=== PATIENT | female | born 1970 | race Caucasian/White ===

== ENCOUNTER 2024-08-31 06:03 | Emergency (ER) | payer OTHER, SELFPAY ==
[2024-08-31 06:18] VITALS: BP 145/5
--- NOTE | 2024-08-31 07:15 | ED.GENMED ---
History of Present Illness
General
Chief Complaint: Skin Surface Trauma
Source: patient
Exam Limitations: none
Time Seen by Provider: 08/31/24 07:06
History of Present Illness
History of Present Illness:
54yoF presenting for evaluation after a fall around 1am. Patient has a tendency to trip due to have abnormal foot anatomy. She woke up in the middle of the night and was walking in the dark when she tripped and fell forward. She struck the left side
of her lip causing a laceration. She denies any loss of consciousness. She denies any dental trauma. Tdap is reportedly up to date.
Past History
Past History
ED Past Medical History: Other (Rheumatoid arthritis, maintained on Enbrel injections, Plaquinil, Sjogren syndrome)
ED Past Surgical History: None
Social History
Tobacco: Non-smoker
Alcohol: Occasional
Personal:
Living: with family
Employment: Employed
Family History
Family History: Other
Phy Exam
General Physical Exam
General Presentation: well appearing and no apparent distress
General age: appears stated age
General Skin: warm and dry
General Habitus: normal
General Mental: alert
ENT Exam
ENT Exam: normocephalic and other (Gaping laceration noted to the lateral L lower lip that involves the chelita border. Laceration extends to muscle layer. No dental trauma. No mandibular tenderness or malalignment.)
Eye Exam
Eye Exam: PERRL
Neurological Exam
Neurological Exam: alert
Skin Exam
Skin Exam: normal color and warm/dry
Psychiatric Exam
Psychiatric Exam: normal mood/affect
Course
Orders/Labs/Results
Orders:
Orders
08/31/24 07:14
Lidocaine/Epinephrine/Tetracai [Let Topical Anesthetic Gel] 3 ml TOPICAL NOW STA
08/31/24 08:32
Amoxicillin 875 mg/Clav 125 mg [Augmentin 875 mg/125 mg] 1 tablet PO NOW STA
Tetanus/Diphth/Acelpertussis [Adacel] 0.5 ml IM .ONCE ONE
Vital Signs
Initial and Last Documented VS:
Initial Vital Signs
Temp Pulse Resp BP Pulse Ox
97.4 F 88 18 145/5 100
08/31/24 06:18 08/31/24 06:18 08/31/24 06:18 08/31/24 06:18 08/31/24 06:18
Last Documented Vital Signs
Temp Pulse Resp BP Pulse Ox
97.4 F 78 16 124/75 98
08/31/24 06:18 08/31/24 09:10 08/31/24 09:10 08/31/24 09:10 08/31/24 09:10
Procedures
Laceration Closure
Left Lip:
Status of Wound: clean
Size of Wound in cm: 2.5
Description of Wound Edges: ragged
Preparation: cleaned with saline and cleaned with Betadine
Anesthesia: 1% Lidocaine and Topical-LET
Wound exploration: explored to base- no FB
Type of Closure: single layer closure
Skin Closure Material: 6-0 nylon and 6-0 vicryl
Number of sutures: 7
Additional information:
[address] to outer skin/chelita border. 4 Vicryl sutures placed to inner mucosa.
MDM/Problems Addressed
Differential Diagnosis Includes:
54yoF here with a L lower lip laceration after an injury last night. Gaping laceration involving the chelita border on exam. No evidence of dental trauma or maxillofacial fracture. Laceration was repaired as above. Patient tolerated well. Tdap
updated. She was started on a course of Augmentin for infection prophylaxis. Advised soft diet for 3-4 days and suture removal in 5 days. ED return precautions discussed including signs of infection. Patient discharged in stable condition.
*Critical Care Note
Total Time (30-74mins, 75-104mins- exclusive of procedures): Not Applicable
ED Attending Note
-
Portions of this chart may have been created with voice recognition software.� Occasional wrong word or��sound alike� substitutions may have occurred due to the inherent limitations of voice recognition software.
Discharge Plan
Departure
Patient Disposition: Home (Routine Discharge)
Date of Disposition: 08/31/24
Time of Disposition: 08:31
Patient with high blood pressure during this ER visit?: Yes
Discharge Problem:
Laceration of lip
Instructions: Laceration Repair With Stitches (DC)
Prescriptions:
New
amoxicillin-pot clavulanate 875-125 mg tablet
1 tab PO BID Qty: 14 0RF
No Action
pilocarpine HCl 5 MG tablet
5 mg PO TID
hydroxychloroquine 200 MG tablet
200 mg PO DAILY
amlodipine 10 mg Tablet
10 mg PO DAILY
ibuprofen [Advil] 200 mg Tablet
200 - 600 mg PO PRN PRN (Reason: pain)
fluticasone propionate [Flonase] 50 mcg/actuation [place],Suspension
2 spray INTRANASAL DAILY
loratadine [Claritin] 10 mg Tablet
10 mg PO DAILY
escitalopram oxalate [Lexapro] 20 mg Tablet
20 mg PO DAILY
meloxicam 15 mg Tablet
15 mg PO DAILYPRN PRN (Reason: pain)
naproxen sodium [Aleve] 220 mg Tablet
220 - 440 mg PO PRN PRN (Reason: pain)
Enbrel 50 mg/mL (1 mL) Syringe
50 mg SC FR
Referrals:
Favian Youngblood PA-C [Family Provider] -
Activity Restrictions/Additional Instructions:
Eat soft foods for 3-4 days while wound is healing. Rinse mouth with water after eating. Take antibiotics as prescribed.
Sutures should be removed in 5 days. Return to the ER with any signs of infection.
Interventions
Interventions:
*Risk Screen - Suicide Last Done: 08/31/24 06:18
*General Assessment Last Done: 08/31/24 09:10
*Neglect/Abuse Screening Last Done: 08/31/24 06:18
ED- Fall Risk Assessment Last Done: 08/31/24 08:45
*ED COVID-19 Vaccine History Last Done: 08/31/24 08:45
*Nursing Disposition Last Done: 08/31/24 09:10
ED-Skin Assessment Last Done: 08/31/24 08:45
Discharge Date and Time
Discharge Date/Time: 08/31/24 09:20
Print Language: [email or web address]
[2024-08-31] MEDS: LET TOPICAL ANESTHETIC GEL 3 ML TOPICAL (08:53)
[2024-08-31] MEDS: ADACEL 0.5 ML IM (08:53)
[2024-08-31] MEDS: AUGMENTIN 875 MG/125 MG 1 TABLET PO (08:53)
[2024-08-31 09:10] VITALS: BP 124/75
== END 2024-08-31 09:20 | disposition home or self-care (01) ==
LOC: EMR 06:03
PROVIDERS: EMERGENCY PHYSICIAN Emergency Medicine; FAMILY PHYSICIAN Physician Assistant Medical
DX: S01.511A Laceration without foreign body of lip, initial encounter (principal); W01.0XXA Fall on same level from slipping, tripping and stumbling without subsequent striking against object, initial encounter; M06.9 Rheumatoid arthritis, unspecified; M35.00 Sjogren syndrome, unspecified; Z23 Encounter for immunization
CPT/HCPCS: 12011; 99282; 90471; 90715